=== PATIENT | female | born 1995 | race Caucasian/White ===

== ENCOUNTER 2021-11-30 00:08 | Emergency (ER) | payer OTHER ==
[~2021-11-30] VITALS: Ht 160 cm; Wt 63.5 kg
--- NOTE | 2021-11-30 00:25 | NUR ---
BIBS C/O SORETHRAOT X3DAYS. -RESP DISTRESS, -SOB. PLACED IN ROOM 19 PUI. VITALS CHECKED.
--- NOTE | 2021-11-30 00:28 | NUR ---
SEEN BY DR JUÁREZ AT RM 19
[2021-11-30] MEDS ORDERED: DEXAMETHASONE SOD PHOSPHATE 10 MG/ML VIAL IV ONE (00:30)
[2021-11-30] MEDS ORDERED: DEXAMETHASONE SOD PHOSPHATE 10 MG/ML VIAL ONE (00:53)
--- NOTE | 2021-11-30 01:00 | NUR ---
COVID SWAB DONE AND SENT TO LAB
--- NOTE | 2021-11-30 02:18 | NUR ---
Patient discharged to home in stable condition. Written and verbal after care instructions given. Patient verbalizes understanding of instruction.
[2021-11-30 02:19] VITALS: BP 131/70
== END 2021-11-30 02:19 | disposition home or self-care (01) ==
LOC: ER 00:10
DX: J02.8 Acute pharyngitis due to other specified organisms (principal); B97.89 Other viral agents as the cause of diseases classified elsewhere
CPT/HCPCS: 99283; 87426; J1100; C9803